=== PATIENT | female | born 2000 | race Two or more races ===

== ENCOUNTER 2024-05-12 17:15 | Emergency (ER) | payer SELFPAY ==
--- NOTE | 2024-05-12 17:33 | EDNOTE_ITS ---
ED General RME/HPI General Chief complaint: Medical Clearance Stated complaint: [facility] CLEARNACE Time Seen by Provider: 05/12/24 17:30 Arrival date/time: 05/12/24 17:15 CC: Medical clearance HPI patient presents the ER via PD in handcuffs after she was found coming out of the bathroom for urine specimen holding white powdery substance in her hands when it was tried to remove from her she stuffed in her mouth stating that it was soap however the intake custodial facility has no powdered soap. Patient is awake alert oriented nontoxic-appearing cooperative with direct eye contact. Related Data Allergies Allergy/AdvReac Type Severity Reaction Status Date / Time No Known Allergies Allergy Verified 05/12/24 17:50 Review of Systems Review of Systems Narrative Review of Systems: GEN: No fever, no chills, no weight loss EYES: No discharge, no visual changes, no pain HEENT: No ear pain, no congestion, no sore throat PULM: No shortness of breath, no cough, no congestion CV: No chest pain, no dyspnea on exertion, no palpitations GI: No nausea, no vomiting, no diarrhea, no pain, no constipation : No frequency, no urgency, no dysuria MUSC/SKEL: No joint pain, no back pain SKIN: No rash PSYCH: No hallucinations, no depression HEME/LYMPH: No easy bleeding or bruising tendencies NEURO: No weakness, no headache ED Exam Narrative Physical exam: [General: Appears not in any acute distress Head normocephalic HEENT: Within acceptable limits Neck is supple nontender Chest equal chest rise nontender to palpation Respiratory: Clear to auscultation no wheezes crackles or rubs CV: Rate rhythm is regular no murmurs rubs or clicks Abdomen is soft nontender no masses positive bowel sounds all 4 quadrants Back: No CVA tenderness no spinous process tenderness from cervical spine thoracic and lumbar spine Skin: Intact no petechiae rash induration ulceration or crepitus Extremities: Moving all extremity against resistance cap refill less than 2 seconds neurosensory intact Neuro: Awake alert oriented x3 Glascow coma 15 no focal deficits] Course Quality Measures none Orders Category Date Time Status Drug Screen,Urine Stat Lab 05/12/24 17:55 Completed Vital Signs Vital signs: Vital Signs Temperature 98.2 F 05/12/24 17:34 Pulse Rate 100 05/12/24 17:34 Respiratory Rate 20 05/12/24 17:34 Blood Pressure 138/86 H 05/12/24 17:34 Pulse Oximetry (%) 96 05/12/24 17:34 Oxygen Delivery Method Room Air 05/12/24 17:34 [facility] Patient data External records reviewed:: [facility] previous records Clinical information provided by:: patient and EMS Social determinants that could affect healthcare access:: none Patient has the following chronic illnesses:: None How is presenting disease/condition affected by chronic disease/condition?: uneffected by Evaluation data The following diagnostics were reviewed and interpreted by me:: lab results Lab and/or radiology exams considered but not ordered:: Urine is positive for fentanyl and methamphetamines Interpretation Summary: Cleared for incarceration Medications Medications considered but not ordered:: None Medication administrations:: None Consultations Consultation(s) initiated? (list below): No Diagnosis Differential Diagnosis ED Complaint MDM: Polysubstance abuse methamphetamine abuse Fentanyl abuse Most likely diagnosis given after review of the tests above:: Cleared for custodial Admission Indicated Admission indicated?: not indicated Explain why admission is indicated or not indicated:: Stable for discharge Admission Request Was there a request for admission?: No Disposition Plan Disposition Plan: Discharge Discharge Attestation Discharge Attestation: The patient and all family members were given an opportunity to ask questions and understood the discharge instructions. Discharge instructions specifically effects, indications for sooner follow up or return to the emergency department, and the expected course of current diagnosis. Patient condition: Stable Medical Decision Making Differential Diagnosis Differential Diagnosis: Polysubstance abuse methamphetamine abuse Fentanyl abuse Lab Data Labs: Lab Results 05/12/24 Range/Units 17:55 Urine Opiates Screen Negative (Negative) Urine Fentanyl Screen Positive A (Negative) Ur Barbiturates Screen Negative (Negative) U Amphetamin/Meth Scrn Positive A (Negative) U Benzodiazepines Scrn Negative (Negative) U Cocaine Metab Screen Negative (Negative) U Marijuana (THC) Screen Negative (Negative) Discharge Plan Plan Patient Disposition: HOME (Self Care) Patient condition on transfer: Stable Problem List Clinical Impression: Medical clearance for incarceration, Methamphetamine abuse, Fentanyl dependence Patient/Caregiver Discharge Instructions Print Language: Turkmen Stand Alone Forms: Sandy Award Info., Patient Portal Info Letter PA/LACI Supervising Physician PA/LACI Supervising Physician: Vishnu Mcclendon ENP
[2024-05-12 17:34] VITALS: BP 138/86; PULSE 100; RESP 20; TEMP 36.8; O2SAT 96
[2024-05-12 17:47] VITALS: BMI 25.7
[2024-05-12 18:49] LABS: Amphetamine/Methamp Scrn,U Positive (Negative); Barbiturate Screen,Urine Negative (Negative); Benzodiazepines Screen,Urine Negative (Negative); Benzoylecgonine Screen, Ur Negative (Negative); Fentanyl Screen,Urine Positive (Negative); Opiate Screen,Urine Negative (Negative); THC Screen,Urine Negative (Negative)
== END 2024-05-12 19:17 ==
LOC: SERX 19:17
PROVIDERS: Registered Nurse General Practice; Emergency Provider Emergency Medicine
DX: Z02.89 Encounter for other administrative examinations (principal); F15.10 Other stimulant abuse, uncomplicated; F11.20 Opioid dependence, uncomplicated; Z65.3 Problems related to other legal circumstances
CPT/HCPCS: 80307; 99283